=== PATIENT | male | born 1935 | race Caucasian/White ===

== ENCOUNTER → 2021-02-04 13:29 | Outpatient (BNVA) | payer MEDICARE, SELFPAY | PROVIDERS: Visit Provider Family Medicine Adult Medicine | DX: M47.816 Spondylosis without myelopathy or radiculopathy, lumbar region (principal); M96.1 Postlaminectomy syndrome, not elsewhere classified | CPT/HCPCS: 99202 ==

== ENCOUNTER → 2021-02-20 14:22 | Outpatient (BNVA) | payer MEDICARE, SELFPAY | PROVIDERS: Visit Provider Family Medicine Adult Medicine | DX: M47.816 Spondylosis without myelopathy or radiculopathy, lumbar region (principal); M96.1 Postlaminectomy syndrome, not elsewhere classified | CPT/HCPCS: 99212 ==

== ENCOUNTER → 2021-03-20 14:20 | Outpatient (BNVA) | payer MEDICARE, SELFPAY | PROVIDERS: Visit Provider Family Medicine Adult Medicine | DX: M96.1 Postlaminectomy syndrome, not elsewhere classified (principal); M47.816 Spondylosis without myelopathy or radiculopathy, lumbar region | CPT/HCPCS: 99212 ==

== ENCOUNTER → 2021-10-30 14:24 | Outpatient (BNVA) | payer MEDICARE, SELFPAY | PROVIDERS: Visit Provider Internal Medicine | DX: M54.9 Dorsalgia, unspecified (principal); M96.1 Postlaminectomy syndrome, not elsewhere classified; M47.26 Other spondylosis with radiculopathy, lumbar region; M51.9 Unspecified thoracic, thoracolumbar and lumbosacral intervertebral disc disorder | CPT/HCPCS: 99212 ==

== ENCOUNTER 2021-12-03 05:47 | Outpatient (REF) | payer MEDICARE, SELFPAY ==
--- NOTE | ~2021-12-03 | FL_ITS ---
EXAMINATION: XR FLUOROSCOPY WITH IMAGES CLINICAL INFORMATION: M54.16 - Radiculopathy, lumbar region COMPARISON: None. TECHNIQUE: Fluoroscopy performed by Dr. Gaurav Calloway. Fluoroscopy time: 0.4 minus minutes DAP: 2.75 Gycm2 Images: 4 FINDINGS: There is a spinal needle with tip at mid aspect lower left lumbar neural foramen, location difficult to accurately discern given the small field of view. There is contrast in the nerve sheath and transforaminal epidural extension. There are multilevel degenerative disc changes. FL/FL guidance in treatment room IMPRESSION: Fluoroscopy for pain management procedure.
== END 2021-12-03 05:48 | disposition home or self-care (01) ==
LOC: HO.RADIR 05:47
PROVIDERS: Visit Provider Internal Medicine
DX: M54.16 Radiculopathy, lumbar region (principal); M96.1 Postlaminectomy syndrome, not elsewhere classified
CPT/HCPCS: 64483; J1100